=== PATIENT | male | born 1975 | race Caucasian/White ===

== ENCOUNTER 2016-12-29 00:57 | Inpatient (IN) ==
[2016-12-29] MEDS ORDERED: PHENERGAN IM ONE (01:22)
[2016-12-29] MEDS ORDERED: ATIVAN IM ONE (01:22)
[2016-12-29] MEDS ORDERED: BENADRYL IM ONE (01:23)
[2016-12-29] MEDS ORDERED: CATAPRES-TTS-2 TD ONE (01:24)
[2016-12-29 01:42] LABS: MANUAL DIFF NEEDED? NO
[2016-12-29 01:58] LABS: BASO% 0.7 % (0.0-0.8); EOS# 0.01 X1000 (0.0-0.7); EOS% 0.1 % (0.0-10.0); HEMATOCRIT 43.8 % (42.0-52.0); IMM GRAN# 0.22 X1000 (0.0-0.04); IMM GRAN% 1.6 % (0.0-0.5); LYMPH# 4.66 X1000 (1.2-3.4); MCH 26.2 PG (27-31); MONO# 1.07 X1000 (0.11-0.59); MONO% 7.8 % (1.7-9.3); MPV 9.4 FL (7.4-10.4); NEUT% 55.8 % (42.2-75.2); PLT 626 X1000 (130-400); RBC 5.34 XMIL (4.7-6.1)
[2016-12-29 01:58] LABS: URINE CULTURE NEEDED? NO; URINE MICRO REVIEW NEEDED? NO; URINE SOURCE CLEAN CATCH
[2016-12-29 02:05] LABS: ACETAMINOPHEN < 1.2 ug/mL (10-30); AGAP 20; ALBUMIN 4.3 g/dL (3.5-5.0); ALKALINE PHOSPHATASE 144 U/L (32-122); BUN 10 mg/dL (8-22); CALCIUM 8.4 mg/dL (8.8-10.2); CHLORIDE 109 mmol/L (98-107); COSMO 298; GOT 40 U/L (10-34); GPT 46 U/L (10-44); POTASSIUM 3.6 mmol/L (3.5-5.1); SODIUM 150 mmol/L (136-145); TCO2 21 mmol/L (25-35); TOTAL BILIRUBIN 0.16 mg/dL (0.20-1.00); TOTAL PROTEIN 8.2 g/dL (6.3-8.3)
[2016-12-29 02:13] LABS: UR AMPHETAMINES MT NONE DETECTED (NONE DETECT); UR BARBITUATES MT NONE DETECTED (NONE DETECT); UR BENZODIAZ MT PRESUMPTIVE POS (NONE DETECT); UR CANNABIS MEDTOX NONE DETECTED (NONE DETECT); UR COCAINE MT NONE DETECTED (NONE DETECT); UR METHADONE MEDTOX NONE DETECTED (NONE DETECT); UR OPIATES MT PRESUMPTIVE POS (NONE DETECT); UR OXYCODONE MEDTOX NONE DETECTED (NONE DETECT); UR PCP MEDTOX NONE DETECTED (NONE DETECT)
[2016-12-29 02:20] LABS: FREE T4 1.09 ng/dL (0.93-1.70)
[2016-12-29] MEDS ORDERED: NS 1,000 ML IV ONE (02:34)
[2016-12-29] MEDS ORDERED: GEODON IM ONE (02:34)
[2016-12-29] MEDS ORDERED: STERILE WATER INJ. INJ ONE (02:34)
[2016-12-29 02:37] LABS: BILIRUBIN URINE NEGATIVE (NEGATIVE); BLOOD URINE MODERATE (NEGATIVE); COLOR YELLOW; GLUCOSE URINE NEGATIVE (NEGATIVE); LEUKOCYTES URINE NEGATIVE (NEGATIVE); NITRITE URINE NEGATIVE (NEGATIVE); PH URINE 5.5; PROTEIN URINE 100 mg/dL (NEGATIVE); SP GRAVITY URINE 1.014; TURBIDITY URINE CLEAR (CLEAR); UROBILINOGEN URINE NORMAL (NORMAL)
[2016-12-29 02:39] LABS: UR EPITHELIAL CELLS <10 /HPF (<10); URINE BACTERIA NEGATIVE /HPF; URINE RBC <10 /HPF (<10); URINE WBC <10 /HPF (<10)
--- NOTE | 2016-12-29 02:40 | PROVIDER DOCUMENTATION ---
This chart was entered by Caden Jane Scribe, acting as scribe for Robb Gonzalez MD. HPI-Psychological Disorder - General Chief Complaint: Psych Stated Complaint: SI Time Seen by Provider: 12/29/16 01:08 Source: patient, EMS, old records Allergies/Adverse Reactions: Patient Allergies Allergy/AdvReac Type Severity Reaction Status Date / Time Penicillins Allergy Unknown Unknown Verified 12/29/16 01:09 Latex, Natural Rubber AdvReac ANAPHYLAXIS Verified 12/29/16 01:09 Home Medications: Home Medication List Medication Instructions Recorded Confirmed Last Taken Type Carvedilol [Coreg] 6.25 mg PO Q12HR #0 tablet 04/04/16 12/29/16 Unknown Rx Olanzapine [Zyprexa] 5 mg PO QHS #0 tablet 04/04/16 12/29/16 Unknown Rx Venlafaxine E.r. [Effexor Xr] 150 mg PO DAILY #0 capsule 04/04/16 12/29/16 Unknown Rx Docusate Sodium 100 mg PO DAILY 06/17/16 12/29/16 Unknown History Pantoprazole [Protonix] 40 mg PO DAILY@0700 06/17/16 12/29/16 Unknown History Potassium Chloride 10 meq PO DAILY 06/17/16 12/29/16 Unknown History Torsemide 20 mg PO DAILY 06/17/16 12/29/16 Unknown History - History of Present Illness-Psych Nature of Presenting Problem: Pt is a 41 yowm who presents to ER via EMS with CC fo SI. Pt reports that he is an IV drug user and states that his last use was 3 days ago with heroin. Pt reports that he has not slept in 3 days, and has consumed 3 bottles of wine and an unknown amount of whiskey. Pt complains of SI, depression, and N/D. Pt was admitted earlier this year for endocarditis from IV drug use. Pt reports that he has been admitted 3 times total with endocarditis. Onset/Duration: reports: unsure, just prior to arrival Timing: reports: still present Severity: reports: moderate, severe Situational problems related to:: reports: N/A Psychiatric Complaints: reports: depressed, suicidal ideation Substance Use: reports: alcohol, opiates (heroin) Previous psych related hospitalizations?: Yes Patient arrived by:: EMS called by patient Similar Symptoms Previously?: Yes Recently seen or treated by another doctor?: Yes Review of Systems - Adult - REVIEW OF SYSTEMS - ADULT Constitutional: denies: chills, fever, fatique, night sweats, weight gain, weight loss Eyes: reports: no symptoms reported Ears, Nose, Mouth & Throat: reports: no symptoms reported Cardiovascular: reports: no symptoms reported Respiratory: reports: no symptoms reported Gastrointestinal: reports: no symptoms reported Genitourinary: reports: no symptoms reported Musculoskeletal: reports: no symptoms reported Integumentary: reports: no symptoms reported Neurological: reports: no symptoms reported Psychiatric: reports: alcohol/drug dependence, depression, suicidal thoughts. denies: anxiety, anti-depressant use, emotional problems, insomnia, panic attacks Endocrine: reports: no symptoms reported Hematologic/Lymphatic: reports: no symptoms reported Allergic/Immunologic: reports: no symptoms reported All Other Systems: Reviewed and Negative Past History - Adult - PAST MEDICAL HISTORY-ADULT Review of Records: reports: Nursing Assessment Review, Medications Reviewed Cardiovascular: reports: HTN, hyperlipidemia, other (endocarditis) Gastrointestinal: reports: GERD Musculoskeletal: reports: arthritis, neck/back injury, other fractures, orthopedic injury Psychiatric: reports: anxiety, bipolar, depression, psychiatric problems Endocrine/Immune: reports: anemia - PRIOR SURGERIES/PROCEDURES Surgical/Procedure History: reports: orthopedic (extremity), other ( spleenectomy due to trauma) - IMMUNIZATION STATUS Childhood Immunizations: See Nurse Assessment Flu Vaccine: See Nurse Assessment - SOCIAL HISTORY Substance Use: alcohol, opiates (heroin) Alcohol Use Frequency: every day Physical Exam-Psych Focus - Physical Exam-Psych Initial Vital Signs Reviewed: Yes Appearance: appropriate appearance, appropriate insight, neat, no memory impairment, alert, mild distress, other (smells of etoh). negative: no apparent distress, denies illness Neurological: alert, calm, bankruptcy paralegal II-XII nml as tested, oriented x 3, depressed affect Behavior/Eye Contact/Speech: cooperative, good eye contact, normal speech. negative: avoids eye contact, refused to answer, threatening eye contact, decreased rate of speech, increased rate of speech, belligerent, compulsive, uncooperative Thoughts/Hallucinations: normal thought pattern, no apparent hallucination. negative: auditory hallucinations, tactile hallucinations, visual hallucinations Respiratory: chest non-tender, lungs clear, normal breath sounds, no pleuratic chest pain, no respiratory distress, no accessory muscle use. negative: respiratory distress, decreased breath sounds, accessory muscle use, wheezing Cardiovascular: normal peripheral pulses, regular rate, rhythm. negative: bradycardia, tachycardia, irregularly irregular Progress - PLAN OF CARE/RESULTS Progress/Plan/Lab Results: Vital Signs - 8 hr 12/29/16 00:58 Temperature 98 F Pulse Rate 107 H Respiratory Rate 14 Blood Pressure 169/105 O2 Sat by Pulse Oximetry 96 Laboratory Results - last 24 hr 12/29/16 12/29/16 12/29/16 01:30 01:30 01:30 WBC 13.72 H RBC 5.34 Hgb 14.0 Hct 43.8 MCV 82.0 MCH 26.2 L MCHC 32.0 L RDW Std Deviation 18.6 H Plt Count 626 H MPV 9.4 Immature Gran % (Auto) 1.6 H Neut % (Auto) 55.8 Lymph % (Auto) 34.0 Wagoner % (Auto) 7.8 Eos % (Auto) 0.1 Baso % (Auto) 0.7 Immature Gran # (Auto) 0.22 H Neut # (Auto) 7.67 H Lymph # (Auto) 4.66 H Wagoner # (Auto) 1.07 H Eos # (Auto) 0.01 Baso # (Auto) 0.09 Sodium 150 H Potassium 3.6 Chloride 109 H Carbon Dioxide 21 L Anion Gap 20 BUN 10 Creatinine 1.0 Estimated GFR/1.73 m2 > 60 BUN/Creatinine Ratio 10 Glucose 124 H Calculated Osmolality 298 Calcium 8.4 L Total Bilirubin 0.16 L AST 40 H ALT 46 H Alkaline Phosphatase 144 H Total Protein 8.2 Albumin 4.3 Globulin 3.9 Albumin/Globulin Ratio 1.1 Vitamin B12 TSH Free T4 Urine Source Urine Color Urine Turbidity Urine pH Ur Specific Grabill Urine Protein Ur Glucose (Stick) Ur Ketones (Stick) Urine Blood Urine Nitrite Urine Bilirubin Urobilinogen Dipstick Urine Leukocytes Salicylates < 3.00 L Urine Opiates Screen Ur Oxycodone Screen Urine Methadone Screen Acetaminophen < 1.2 L Ur Barbiturates Screen Ur Phencyclidine Scrn Ur Amphetamines Screen U Benzodiazepines Scrn Urine Cocaine Screen U Cannabinoids Screen Plasma/Serum Ethyl Alc 304 H 12/29/16 12/29/16 12/29/16 01:30 01:48 01:48 WBC RBC Hgb Hct MCV MCH MCHC RDW Std Deviation Plt Count MPV Immature Gran % (Auto) Neut % (Auto) Lymph % (Auto) Wagoner % (Auto) Eos % (Auto) Baso % (Auto) Immature Gran # (Auto) Neut # (Auto) Lymph # (Auto) Wagoner # (Auto) Eos # (Auto) Baso # (Auto) Sodium Potassium Chloride Carbon Dioxide Anion Gap BUN Creatinine Estimated GFR/1.73 m2 BUN/Creatinine Ratio Glucose Calculated Osmolality Calcium Total Bilirubin AST ALT Alkaline Phosphatase Total Protein Albumin Globulin Albumin/Globulin Ratio Vitamin B12 295 TSH 0.17 L Free T4 1.09 Urine Source CLEAN CATCH Urine Color YELLOW Urine Turbidity CLEAR Urine pH 5.5 Ur Specific Grabill 1.014 Urine Protein 100 A Ur Glucose (Stick) NEGATIVE Ur Ketones (Stick) NEGATIVE Urine Blood MODERATE A Urine Nitrite NEGATIVE Urine Bilirubin NEGATIVE Urobilinogen Dipstick NORMAL Urine Leukocytes NEGATIVE Salicylates Urine Opiates Screen PRESUMPTIVE POS A Ur Oxycodone Screen NONE DETECTED Urine Methadone Screen NONE DETECTED Acetaminophen Ur Barbiturates Screen NONE DETECTED Ur Phencyclidine Scrn NONE DETECTED Ur Amphetamines Screen NONE DETECTED U Benzodiazepines Scrn PRESUMPTIVE POS A Urine Cocaine Screen NONE DETECTED U Cannabinoids Screen NONE DETECTED Plasma/Serum Ethyl Alc Orders Category Date Time Status ACETAMINOPHEN [TDM] Stat Lab 12/29/16 01:30 Completed ALCOHOL BLOOD Stat Lab 12/29/16 01:30 Completed CBC WITH ELECTRONIC DIFF [HEME] Stat Lab 12/29/16 01:30 Completed COMPREHENSIVE METABOLIC PANEL [CHEM] Stat Lab 12/29/16 01:30 Completed FREE T4 Stat Lab 12/29/16 01:30 Completed SALICYLATES [TDM] Stat Lab 12/29/16 01:30 Completed TSH Stat Lab 12/29/16 01:30 Completed URINALYSIS W/POSS RFLX CULT-1 [URINALYSIS] Stat Lab 12/29/16 01:48 Results URINE DRUG SCREEN MEDTOX Routine Lab 12/29/16 01:48 Completed VITAMIN B12 Stat Lab 12/29/16 01:30 Completed 0.9% Sodium Chloride Inj [Ns] 1,000 ml Med 12/29/16 02:34 Active IV 999 mls/hr Clonidine Patch [[id number]-Hew-8] Med 12/29/16 01:24 Discontinued 1 each TD NOW ONE Diphenhydramine [Benadryl] Med 12/29/16 01:23 Discontinued 50 mg IM NOW ONE Lorazepam [Ativan] Med 12/29/16 01:22 Discontinued 2 mg IM NOW ONE Promethazine [Phenergan] Med 12/29/16 01:22 Discontinued 50 mg IM NOW ONE Water, Sterile Inj [Sterile Water Inj] Med 12/29/16 02:34 Discontinued 1.2 ml INJ NOW ONE Ziprasidone [Geodon] Med 12/29/16 02:34 Discontinued 20 mg IM NOW ONE EKG [EKG] Stat Ther 12/29/16 01:09 Ordered Result Diagrams: 12/29/16 01:30 12/29/16 01:30 Departure - Departure Date of Disposition Decision: 12/29/16 Time of Disposition Decision: 02:38 DIAGNOSIS: Hypernatremia, Suicidal ideation, Opiate withdrawal Alcohol intoxication Qualifiers: Complication of substance-induced condition: uncomplicated Qualified Code(s): F10.920 - Alcohol use, unspecified with intoxication, uncomplicated Disposition: ADMITTED INPATIENT 09 Certified Medical Emergency: Emergent Condition: Fair Referrals and Follow-Ups: Georgie Le MD [Primary Care Provider] - - Critical Care Note This patient required my direct & personal management of CC.: No Attestation - Physician/ NIKA Attestation Patient care was provided by Advanced Practice Provider:: No The physician spent face to face time with patient:: Yes Advanced Practice Provider documentation review:: Supervising physician onsite and consulted in the evaluation and care of this patient. The physician did have a face to face encounter with the patient. This chart was documented by the indicated scribe, (Caden Jane Scribe) and accurately reflects the services I performed and decisions made by me, Robb Bills MD, as attested by the provider's signature.
[2016-12-29] MEDS ORDERED: D5 1/2 NS 1,000 ML IV ONE (03:48)
[2016-12-29] MEDS ORDERED: LABETALOL IV PRN (04:32)
[2016-12-29] MEDS ORDERED: GEODON IM PRN (04:43)
[2016-12-29] MEDS ORDERED: ZOFRAN IV PRN (04:43)
[2016-12-29] MEDS ORDERED: ATIVAN IV PRN (04:43)
[2016-12-29] MEDS ORDERED: PROTONIX IV SCH (04:43)
[2016-12-29] MEDS ORDERED: POTASSIUM CHLORIDE 20 MEQ, MAGNESIUM SULFATE 2 GM, THIAMINE 100 MG, FOLIC ACID 1 MG, M.... IV SCH ×6 (04:43)
[2016-12-29] MEDS ORDERED: SODIUM CHLORIDE 0.9% INJ SCH (04:43)
[2016-12-29] MEDS ORDERED: STERILE WATER INJ. INJ PRN (04:43)
[2016-12-29] MEDS ORDERED: TORADOL IV PRN (04:43)
--- NOTE | 2016-12-29 05:00 | HISTORY AND PHYSICAL ---
CHIEF COMPLAINT: Suicidality. HISTORY OF PRESENT ILLNESS: Briefly, this is a 41-year-old male with an extensive history of IV drug use and tricuspid valve endocarditis. He came in reporting suicidal intention but underlying issue is that he is an IV drug user and he has not had any drugs in the last 3 days. He has been using heroin. He has also not slept in 3 days. He consumed 3 bottles of wine and whiskey unclear amount. He does have suicidal ideation, depression. He has been hospitalized at [facility] for depression. The patient is seen after getting Geodon and Ativan. He is still somewhat agitated. He says he just wants something to knock him out. Again, I do not think he is demanding suicidality, this is a suicidal gesture. He just wants to rest. Workup in the ER revealed hypernatremia so he was admitted for that process. He has had 3 episodes of endocarditis. His last admission here was in June. He had an echocardiogram in September which I think showed tricuspid regurgitation and he had vegetations at that time. I am not sure if he had further treatment. Patient is confused at this point. Workup in the ER was unremarkable except he is extremely disheveled. He has crusted, it looks like old blood around his nose and in his lips. I am not sure if he has been eating very well the last several days. He has no focal complaints. The patient is admitted for suicidality, encephalopathy, hypernatremia. PAST MEDICAL HISTORY: 1. IV drug use. 2. Tricuspid valve endocarditis with persistent regurgitation. I am not sure if he really completed his previous treatment but he was discharged from here. He went to an LTAC. 3. Hypertension. 4. GERD. 5. Anxiety, depression. 6. Hyperlipidemia. 7. Chronic pain syndrome. 8. History of MRSA endocarditis. 9. Morbid obesity. 10. PTSD. PAST SURGICAL HISTORY: 1. Ventral hernia repair. 2. Splenectomy. 3. Multiple abdominal surgeries with ventral hernia repair. SOCIAL HISTORY: He lives with family. Two pack a day smoker. He has probably done that for at least 20 years, 1-2 packs. His previous usage is IV oxycodone which he injects and last usage was about 3 days ago. He reports taking heroin at that time. FAMILY HISTORY: Reviewed and noncontributory. ALLERGIES: Penicillin, trazodone, latex, natural rubber. MEDICATION LIST: Being compiled. REVIEW OF SYSTEMS: Not able to be completely obtained because of patient's altered mentation. PHYSICAL EXAMINATION: VITAL SIGNS: Blood pressure 159/108, heart rate 115, respiratory rate of 14, temperature 98 degrees, 96% on room air. GENERAL: A well-developed male, no acute distress. HEAD: Normocephalic, atraumatic. EYES: Pupils equally round, reactive to light. Extraocular movements were intact. EARS/NOSE/THROAT: He had moist mucous membranes. NECK: Supple. CARDIOVASCULAR: Regular rate and rhythm. No murmurs, gallops, or rubs. PULMONARY: Bilateral breath sounds clear to auscultation. GI: Soft, nontender, nondistended. Bowel sounds were positive. EXTREMITIES: No clubbing or cyanosis. LYMPHATICS: No peripheral edema. NEUROLOGICAL: Nonfocal. ABDOMINAL EXAMINATION: He has distention in his right upper quadrant associated with his previous laparotomy scar. LABORATORY DATA: White count is 13, hemoglobin and hematocrit of 14 and 43, platelets 626,000. Sodium 150, carbon dioxide 21. AST and ALT are 40 and 46 with an alkaline phosphatase of 144. Urine was negative. UDS positive for opiates and benzodiazepines. Alcohol level was 304. ASSESSMENT: This is a 41-year-old male presenting with suicidality. He is going through withdrawals from intravenous narcotics and also hypernatremia, alcohol intoxication. PROBLEM LIST: 1. Suicidality with depression. Obviously, he will need evaluation by Deejay Guillen but he is not stable at this point to be transitioned there at this point because of his metabolic issues. 2. Hypernatremia, likely related to poor oral intake. I do not think he has probably been eating and drinking regularly between the alcohol and the withdrawal. We will continue half normal saline with D5 and follow clinically for improvement as far as the numbers are concerned. 3. History of intravenous drug use. Obviously, he again has "fallen off the wagon". We will continue supportive care. Manage his withdrawal and follow clinically. 4. History of tricuspid endocarditis. We will monitor. He does have some leukocytosis, tachycardia. No fever though and no high white count like he has had before. I will go ahead and do 1 set of blood cultures to ensure there is not persistent bacteremia because, again, I am not sure he completely got over that. We will check an HIV test and hepatitis profile because he does have some elevated liver enzymes. DISPOSITION: Pending his clinical course. If his electrolytes stabilize, we will get a psychiatric evaluation. Because of his concurrent drug use, that may not be locally. We will have to observe him in the unit due to suicidality. cc: MD Georgie Unger MD
[2016-12-29 06:57] LABS: AGAP 21; BUN 10 mg/dL (8-22); CALCIUM 7.8 mg/dL (8.8-10.2); CHLORIDE 107 mmol/L (98-107); COSMO 292; POTASSIUM 3.3 mmol/L (3.5-5.1); SODIUM 147 mmol/L (136-145); TCO2 19 mmol/L (25-35)
[2016-12-29 08:56] VITALS: BP 182/116
[2016-12-29] MEDS ORDERED: EFFEXOR XR PO SCH (09:00)
[2016-12-29] MEDS ORDERED: COLACE PO SCH (09:00)
[2016-12-29] MEDS ORDERED: COREG PO SCH (09:00)
--- NOTE | 2016-12-29 10:40 | PROGRESS NOTE ---
DATE: 12/29/2016 SUBJECTIVE: This morning, Mr. Davis referred to be relatively stable. Still complained of not being able to sleep and constantly moving his legs. He said he is no more suicidal. OBJECTIVE: Vital Signs: Blood pressure is 182/116, pulse of 104, respirations are 14. Temperature is 98.1 degrees. General: Mr. Davis is a 41-year-old, male who is in bed. Does not seem to be in any distress. Continuously moving his limbs. Seems to be anxious/fidgeting. HEENT: Mucosa is pink and moist. Anicteric. Acyanotic. Neck: Supple. Chest: Clear. No crepitations. No rhonchi. Cardiovascular: Regular rate and rhythm. I did not appreciate any murmur. Abdomen: Soft, distended. No hepatosplenomegaly. Bowel sounds are present. Extremities: No pedal edema. 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 He is able to respond adequately to questions. Has no focal neurological deficit. Psychiatric: Patient is anxious. The patient does not make very good eye contact. He is constantly demanding medications to help him sleep. He is constantly moving. Laboratory Data: WBC is 13.72, hemoglobin is 14, platelet count is 626,000. Chemistry is reviewed. Sodium is 147, potassium is 3.3, chloride is 107, bicarb is 19, anion gap of 21. ASSESSMENT: 1. Depression with suicidal ideation. This apparently has been the main reason why patient was admitted. However, this morning, he denies to have any suicidal ideation. 2. Polysubstance abuse. Urine toxicology is positive for benzodiazepines and opioids. The patient is also known to have been using heroin in the past and alcohol level is extremely high on presentation. 3. Alcohol abuse/intoxication with alcohol level of 304 on presentation. 4. 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 5. Mild gap acidosis, likely secondary to lactic acid from dehydration. PLAN: I think Mr. Davis is relatively stable. We are going to continue using p.r.n. morphine and benzodiazepines when it is necessary. Blood cultures are still pending. We will request Deejay Guillen to evaluate the patient. cc: Arthur Emanuel MD
[2016-12-29 10:56] LABS: ALLEN TEST YES; BE -1.3 mmoll (-3.0-3.0); BLOOD TYPE ARTERIAL; DRAW SITE L RADIAL; O2(CT) 16.4 mL/dL (15.0-23.0); PCO2(98.6) 35 mmHg (35-45); PO2(98.6) 79 mmHg (60-100); SAMPLE BLOOD; SAO2 98.1 % (95.0-100.0); THB 12.2 g/dL (11.5-17.4); pH(98.6) 7.42 (7.35-7.45)
[2016-12-29 10:57] LABS: MODALITY ROOM AIR
--- NOTE | 2016-12-29 20:33 | DISCHARGE SUMMARY ---
ADMISSION DATE: 12/29/2016 DISCHARGE DATE: 12/29/2016 DISPOSITION: Is presumed to be home because patient signed AMA. ADMISSION DIAGNOSES: 1. Suicidality with depression. 2. Hyponatremia. 3. History of intravenous drug use. DIAGNOSIS AT THE TIME OF DISCHARGE: 1. Depression with suicidal ideation which has resolved. 2. Polysubstance abuse. 3. Alcohol intoxication on presentation. Recent multiple histories of Staph endocarditis from intravenous drug abuse. 1. Mild gap acidosis. BRIEFLY: Mr. Davis was admitted early on today because he was expressing ideas that he was going to hurt himself. According to the story Mr. Davis had drank about 3 bottles of wine, whiskey and not clear when was the last time he used heroin. Anyway patient was brought in by EMS after the family called them. Upon presentation he was evaluated and because of the risk of suicidality he was admitted for further medical care. Patient had alcohol level of 304 when he came in. Urine toxicology was also positive for opioids and benzodiazepines. During the short hospital stay patient was relatively stable, did not have any abnormalities in the EKG. This morning I saw him, he was more alert, more pleasant, he just said he wanted something for him to be sleeping. We consulted Deejay Guillen but patient said he was he was completely stable, he did not have any more suicidality so he signed the AMA forms and he was set free because he wanted to go. The patient was advised by the ICU nurses to stay to complete his medical care but he insisted to leave AMA. cc: Arthur Emanuel MD
[2016-12-29] MEDS ORDERED: ZYPREXA PO SCH (21:00)
--- NOTE | 2016-12-30 02:33 | ED EKG INTERP ---
This chart was entered by Caden Jane Scribe, acting as scribe for Robb Gonzalez MD. EKG Interpretation - EKG Time of EKG reading by physician:: 03:12 EKG Read and Signed by:: Robb Gonzalez EKG Interpretation (*Must complete 3 of following elements*): Abnormal ( Inferior infarct, age undetermined; Possible anterior infarct, age undetermined) Rate: 115 Rhythm: Sinus tachycardia Attestation - Physician/ NIKA Attestation Patient care was provided by Advanced Practice Provider:: No The physician spent face to face time with patient:: Yes Advanced Practice Provider documentation review:: Supervising physician onsite and consulted in the evaluation and care of this patient. The physician did have a face to face encounter with the patient. This chart was documented by the indicated scribe, (Caden Jane Scribe) and accurately reflects the services I performed and decisions made by me, Robb Bills MD, as attested by the provider's signature.
[2016-12-30 09:42] LABS: HIV ANTIBODY SCREEN SEE COMMENTS
[2016-12-30 09:48] LABS: HEPATITIS PROFILE ACUTE SEE COMMENTS
== END 2016-12-29 13:01 | disposition left against medical advice (07) ==
LOC: ED 00:57 → ICU 04:26 → SUATTDRO 04:26 → ICU 04:31
PROVIDERS: ATTEND Internal Medicine